=== PATIENT | male | born 1975 | race Caucasian/White ===

== ENCOUNTER 2017-11-21 08:24 | Day surgery (SDC) | payer OTHER, SELFPAY ==
[2017-11-21 08:46] VITALS: BP 136/94; PULSE 84; RESP 16; TEMP 36.7; O2SAT 96; BMI 33.8
[2017-11-21 09:01] LABS: Bedside Glucose 194 mg/dL (70-110)
[2017-11-21 10:24] VITALS: BP 112/68; BP 136/94; PULSE 87; RESP 18; TEMP 37.4; O2SAT 94
[2017-11-21 10:29] VITALS: BP 110/70; BP 136/94; PULSE 83; RESP 18; O2SAT 94
--- NOTE | 2017-11-21 10:29 | OP.ENDO_ITS ---
Patient Name: Nadir Silva Procedure Date: 11/21/2017 9:55 AM Date of : 1975 Age: 41 Procedure: Colonoscopy Indications: Hematochezia Providers: South eMlvin MD Medicines: Monitored Anesthesia Care Patient Profile: Last Colonoscopy: none. The patient's first colonoscopy is today. Complications: No immediate complications. Procedure: Pre-Anesthesia Assessment: - Prior to the procedure, a History and Physical was performed, and patient medications and allergies were reviewed. The patient's tolerance of previous anesthesia was also reviewed. The risks and benefits of the procedure and the sedation options and risks were discussed with the patient. All questions were answered, and informed consent was obtained. Prior Anticoagulants: The patient has taken no previous anticoagulant or antiplatelet agents. After reviewing the risks and benefits, the patient was deemed in satisfactory condition to undergo the procedure. After I obtained informed consent, the scope was passed under direct vision. Throughout the procedure, the patient's blood pressure, pulse, and oxygen saturations were monitored continuously. The pediatric colonoscope was introduced through the anus and advanced to the cecum, identified by the appendiceal orifice, ileocecal valve and palpation. The colonoscopy was performed without difficulty. The patient tolerated the procedure well. The quality of the bowel preparation was good. Scope In: 10:06:14 AM Scope Withdrawal Time 0 hours 6 minutes 11 seconds Scope Out: 10:20:17 AM Total Procedure Duration Time 0 hours 14 minutes 3 seconds Findings: The entire examined colon appeared normal on direct and retroflexion views. Impression: - No specimens collected. - The entire examined colon is normal. Recommendation: - Discharge patient to home. - Resume previous diet. - Continue present medications. - Repeat colonoscopy in 10 years for screening purposes. Procedure Code(s): --- Professional --- 06642, Colonoscopy, flexible; diagnostic, including collection of specimen(s) by brushing or washing, when performed (separate procedure) Diagnosis Code(s): --- Professional --- K92.1, Melena (includes Hematochezia) CPT copyright 2017 [employer]. All rights reserved. The codes documented in this report are preliminary and upon metal grinder review may be revised to meet current compliance requirements. South Melvin MD 11/21/2017 10:28:57 AM This report has been signed electronically. Number of Addenda: 0 Note Initiated On: 11/21/2017 9:55 AM
[2017-11-21 10:34] VITALS: BP 110/65; BP 136/94; PULSE 80; RESP 18; O2SAT 96
[2017-11-21 10:39] VITALS: BP 119/69; BP 136/94; PULSE 78; RESP 18; TEMP 37.3; O2SAT 96
[2017-11-21 10:54] VITALS: BP 136/94
== END 2017-11-21 10:55 | disposition home or self-care (01) ==
LOC: EN 08:25 → AC 08:27
PROVIDERS: Family Provider Nurse Practitioner Family; PCP Nurse Practitioner Family; Visit Provider Surgery
PROC: 0DJD8ZZ Inspection of Lower Intestinal Tract, Via Natural or Artificial Opening Endoscopic (ICD-10-PCS; CPT 45378; principal; 2017-11-21 09:25)
DX: K92.1 Melena (principal); E11.9 Type 2 diabetes mellitus without complications; I10 Essential (primary) hypertension; Z80.0 Family history of malignant neoplasm of digestive organs
CPT/HCPCS: 45378; 82962; J7120

== ENCOUNTER 2018-07-28 20:03 | Emergency (ER) | payer OTHER, SELFPAY ==
[2018-07-28 20:06] VITALS: BP 143/73; PULSE 94; RESP 15; TEMP 36.7; O2SAT 98; BMI 32.8
--- NOTE | 2018-07-28 20:06 | ED.RN ---
NO OLD EKGS IN MUSE
--- NOTE | 2018-07-28 20:10 | EKG12_ITS ---
Test Reason : CP Blood Pressure : / mmHG Vent. Rate : 101 BPM Atrial Rate : 101 BPM P-R Int : 182 ms QRS Dur : 086 ms QT Int : 332 ms P-R-T Axes : 056 067 047 degrees QTc Int : 430 ms Sinus tachycardia with occasional Premature ventricular complexes Otherwise normal ECG Confirmed by LIDIA HADDAD, ANTONIO ([id number]), state editor VINI DAVIS ([id number]) on 07/30/2018 11:46:29 AM Referred By: CORRY Confirmed By:ANTONIO MURILLO MD
[2018-07-28] MEDS: Aspirin 81 MG TAB.CHEW 324 MG PO (20:15)
[2018-07-28] MEDS: 0.9% Normal Saline 1,000 ML 1000 ML IV (20:15)
--- NOTE | 2018-07-28 20:15 | RAD_ITS ---
STUDY: X-RAY CHEST REASON FOR EXAM: Male, 42 years old. Chest pain. TECHNIQUE: Single frontal view of the chest. COMPARISON: None. FINDINGS: The lungs are clear and expanded. There is no demonstrated pleural abnormality. Normal size heart. Normal mediastinum and rosemarie. Normal visualized pulmonary arteries. Normal visualized aortic arch and descending thoracic aorta. Normal visualized thoracic spine. Normal visualized ribs, clavicles, and shoulders. There is no demonstrated abnormality of the visualized soft tissue structures of the upper abdomen. RAD/Chest 1 View (Portable) IMPRESSION: No active or acute cardiopulmonary disease. Electronically Signed: Robert Santana MD at 20:25 EDT , Service support ,
--- NOTE | 2018-07-28 20:31 | ED.DCSUM_ITS ---
- ER Visit Summary Date of Service: 07/28/18 Chief Complaint: Chest pain History of Present Illness: The patient is a 42 M with history of hypertension and diabetes presents to the emergency department with left-sided chest pain. Patient states that on , I drank too much. He states he vomited. The next day, he had some tenderness over his left chest. He thought it was muscular. He took some ibuprofen and was feeling better. Today, he was chopping wood and had the pain again. The pain is been constant for the past 8 hours. He also felt mildly lightheaded. He denies any history of coronary vascular disease. He denies any dyspnea. He has no pleuritic chest pain. He denies any recent travel. Physical Examination: Vital signs reviewed General: Well-nourished, well-developed Head: Normocephalic, atraumatic Eyes: Pupils equal and reactive, extraocular muscles intact Neck, supple, no lymphadenopathy Heart: Regular rate and rhythm Respiratory: No distress, clear bilaterally Abdomen: Soft, nontender, nondistended, no peritoneal signs Back: Nontender Extremities: Nontender, no edema, no cords Skin: Normal color no rash Neuro: Alert and oriented, no focal or lateralizing deficits Test Results: [] Emergency Department Course and Treatment: EKG was obtained on patient arrival. Sinus rhythm without acute ischemic change. IV was established. Patient was given aspirin. He had no further pain while here. Chest x-ray shows no focal infiltrative process, pneumothorax, or other dangerous process. Patient's d- dimer was negative. His cardiac enzymes were normal. He had constant pain for greater than 8 hours no history of coronary vascular disease. His pain is reproducible. I do not suspect a dangerous cause of his pain. I do feel he is safe for outpatient therapy and is comfortable with this plan of care. Patient will be discharged home. Treatment Plan: [] Disposition: Discharge Impression: 1. Chest wall pain This note was generated with [employer] dictation software. It may contain incorrect words, spelling, and punctuation that were not noted in review of the chart prior to signing ED Disposition - Plan for ED Patient: Instructions: ED Chest Pain NonCardiac Referrals: Won Ramos, ASHKAN-C [Primary Care Provider] -
[2018-07-28 20:38] LABS: Absolute Lymphocyte Count 3.55 X10^3/ul (0.83-4.51); Absolute Neutrophil Count 7.5 X10^3/uL (2.0-7.7); Basophil# 0.03 X10^3/uL; Basophil% 0.2 % (0-1); Eosinophil# 0.11 X10^3/uL; Eosinophils% 0.9 % (0-5); Hematocrit 45.5 % (40-54); Hemoglobin 16.5 g/dl (13.0-16.5); Lymphocyte # 3.55 X10^3/ul (4.0); Lymphocyte % 29.1 % (19-41); Mean Corp Hgb Conc 36.3 g/gl (32-36); Mean Corpuscular Hgb 30.7 pg (27.0-32.0); Mean Corpuscular Volume 84.7 fL (80-94); Mean Platelet Vol. 10.5 fl (6.2-12.0); Monocyte# 1.01 X10^3/uL; Monocyte% 8.3 % (0-10); Neutrophil # 7.46 X10^3/uL (2.7-7.7); Neutrophil % 61.3 % (47-70); Platelet Count 187 K/mm3 (150-450); RBC Distribution Width CV 12.2 % (11.6-14.6); RBC Distribution Width SD 37.2 fl (35.1-43.9); Red Blood Count 5.37 M/mm3 (4.6-6.2); White Blood Count 12.2 K/mm3 (4.4-11.0)
[2018-07-28 20:41] LABS: POSITIVE COUNT NO; POSITIVE DIFFERENTIAL NO; POSITIVE MORPHOLOGY NO
[2018-07-28 20:44] LABS: D-Dimer Quantitative (DVT/PE) 0.29 FEU/ug/m (0.27-0.49)
[2018-07-28 20:47] LABS: Anion Gap 9 (5-15); BUN 13 mg/dL (7-18); Calcium,Total 9.3 mg/dL (8.5-10.1); Chloride 98 mmol/L (98-107); Creatinine, Serum 1.18 mg/dL (0.70-1.30); EST Glomerular Filtration Rate 71 mL/min (>60); Est Glom Filt Rate - Afr Amer 86 mL/min (>60); Estimated Creatinine Clearance 75.47 ml/min; Glucose 145 mg/dL (74-106); Potassium 3.6 mmol/L (3.5-5.1); Sodium Level 136 mmol/L (136-145)
[2018-07-28 21:05] VITALS: BP 135/87; PULSE 93; RESP 18; O2SAT 96
== END 2018-07-28 21:06 | disposition home or self-care (01) ==
LOC: ED 20:23
PROVIDERS: Emergency Provider Emergency Medicine; Family Provider Nurse Practitioner Family; PCP Nurse Practitioner Family
DX: R07.89 Other chest pain (principal); E11.9 Type 2 diabetes mellitus without complications; I10 Essential (primary) hypertension; R11.0 Nausea; M79.10 Myalgia, unspecified site
CPT/HCPCS: 71045; 80048; 84484; 85025; 85379; 93005; 96360; 99285; J7030

== ENCOUNTER → 2020-10-10 08:45 | Outpatient (CLI) | payer OTHER, SELFPAY ==
--- NOTE | 2020-10-10 09:18 | MRI_ITS ---
STUDY: MRI RIGHT SHOULDER REASON FOR EXAM: Male, 44 years old. RT SHOULDER IMPINGEMENT -- posterior shoulder pain with limited rom TECHNIQUE: Standardized fat and water weighted pulse sequences were obtained in all 3 orthogonal planes. COMPARISON: None. FINDINGS: Mild supraspinatus and infraspinatus tendinosis without tendon tear. Mild/moderate subscapularis tendinosis without tendon tear. Normal teres minor tendon. No muscle atrophy. Mild intracapsular long bicep tendinosis. Biceps labral anchor intact. Mild labral degeneration superiorly without discrete labral tear. Capsular ligaments intact. Normal rotator cuff interval. Glenohumeral cartilage preserved. Moderate acromioclavicular joint arthrosis. Anterior interval narrowing/early impingement. No acute fracture, dislocation or bone destruction. Glenohumeral joint fluid physiologic. No subacromium subdeltoid fluid. Intact coracohumeral and coracoacromial ligaments. Normal quadrilateral space. Normal axillary space. Normal deltoid muscle. Normal trapezius muscle. 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
== END ==
PROVIDERS: PCP Nurse Practitioner Family; Referring Provider Physician Assistant; Visit Provider Physician Assistant
DX: M75.41 Impingement syndrome of right shoulder (principal)
CPT/HCPCS: 73221